=== PATIENT | female | born 1950 | race Caucasian/White ===

== ENCOUNTER → 2020-03-28 12:33 | Outpatient (CLI) | payer MEDICARE, OTHER, SELFPAY ==
--- NOTE | 2020-03-28 13:37 | DI.MRI.S_ITS ---
PROCEDURE: MR KNEE RT WO CON INDICATIONS: Other instability, knee TECHNIQUE: Noncontrast sagittal PD fast spin echo and T2 fast spin echo with fat saturation, sagittal 3-D FLASH with fat saturation; coronal T1 spin echo and PD fast spin echo with fat saturation, and axial PD fast spin echo with fat saturation through the knee. COMPARISON: Outside Film, CR, XR KNEE 3 VIEWS RIGHT, 02/28/2020, 12:32. FINDINGS: Image quality: Excellent. Menisci: There is linear oblique high T2 signal intensity traversing the medial meniscal body and posterior horn, demonstrating inferior articular surface extension, indicating oblique tearing. Linear oblique high T2 signal intensity traverses the lateral meniscal body, demonstrating inferior articular surface extension, indicating oblique tearing. Cruciate ligaments: The anterior and posterior cruciate ligaments appear intact. Medial structures: The medial collateral ligament appears intact. Visualized portions of the pes anserinus tendons appear normal. No abnormal bursal fluid. Lateral structures: The lateral collateral ligament demonstrates mild T2 signal elevation at its femoral origin. The long and short heads of the biceps femoris tendon appear intact. The popliteus tendon appears normal. Iliotibial band appears normal. Anterior structures: The quadriceps and patellar tendons appear intact. Patellar alignment is normal. No femoral trochlear dysplasia or ventral trochlear prominence. There is moderate edema within the superolateral aspect of the infrapatellar fat pad. There is a small amount of prepatellar fluid as well as moderate fat stranding Bones and cartilage: There is a nondisplaced fracture of the inferior pole of the patella, with moderate surrounding ill-defined STIR signal elevation, consistent with contusion. Mild tricompartmental periarticular osteophyte formation. Moderate articular cartilage loss diffusely overlies the weight-bearing aspects of the medial femoral condyle and medial tibial plateau. There is moderate articular cartilage loss overlying the lateral patellar facet inferiorly. Joint space: There is a small knee joint effusion and a trace Dixon's cyst. Normal appearing synovial plicae are incidentally noted. IMPRESSION: 1. Nondisplaced inferior patellar fracture with adjacent contusion, prepatellar soft tissue injury, and infrapatellar fat pad edema. There is associated articular cartilage injury overlying the inferolateral patella. 2. Tricompartmental osteoarthritis with associated articular cartilage loss. 3. Medial and lateral meniscal tearing. 4. Small knee joint effusion and trace Dixon's cyst. Dictated by: Jeanne Sen M.D. on 03/28/2020 at 14:54 Approved by: Jeanne Sen M.D. on 03/28/2020 at 14:59
== END ==
PROVIDERS: Referring Provider Physician Assistant Surgical; Visit Provider Physician Assistant Surgical
DX: M25.361 Other instability, right knee (principal); S82.014A Nondisplaced osteochondral fracture of right patella, initial encounter for closed fracture; M17.11 Unilateral primary osteoarthritis, right knee; S83.281A Other tear of lateral meniscus, current injury, right knee, initial encounter; S83.241A Other tear of medial meniscus, current injury, right knee, initial encounter; M25.461 Effusion, right knee
CPT/HCPCS: 73721

== ENCOUNTER → 2020-08-30 13:41 | Outpatient (CLI) | payer MEDICARE, OTHER, SELFPAY ==
--- NOTE | 2020-08-30 | DI.MG.S_ITS ---
BILATERAL DIGITAL SCREENING MAMMOGRAM 3D/2D WITH CAD: 08/30/2020 CLINICAL: Routine screening. Comparison is made to exams dated: 05/23/2019 mammogram, 08/30/2017 mammogram, and 05/26/2016 mammogram - [facility]. There are scattered fibroglandular elements in both breasts. Current study was also evaluated with a Computer Aided Detection (CAD) system. No significant masses, calcifications, or other findings are seen in either breast. There has been no significant interval change. IMPRESSION: NEGATIVE There is no mammographic evidence of malignancy. A 1 year screening mammogram is recommended. This exam was interpreted at Station ID: [id number]. NOTE: For mammograms, a report in lay terms will be sent to the patient. Approximately 15% of breast malignancies will not be visualized mammographically. In the management of a palpable breast mass, a negative mammogram must not discourage biopsy of a clinically suspicious lesion. Electronically Signed By: Darrell robbins/harrison:08/30/2020 16:06:08 letter sent: Normal Exam ACR BI-RADS Category 1: Negative [id number]
--- NOTE | 2020-08-30 | DI.ECHO.S_ITS ---
[facility] +---------+ : : [address] : [address] [address] : : : : [id number] : : : : Phone: [phone]---------+ Echocardiogram Report + + :Name: RON JORDAN Study Date: 08/30/2020 Height: 64 in : :[facility] Weight: 167 lb : : Gender: Female BSA: 1.8 m2 : :: 1950 Age: 70 yrs BP: 176/75 mmHg: :Reason For Study: MVP : : Performed By: Marcelo Loya : :Referring: KAYODE LLANOS : + + Interpretation Summary The ejection fraction is estimated to be 50-55%. There is prolapse of the anterior mitral valve leaflet. There is prolapse of the posterior mitral valve leaflet(s). There is mild to moderate mitral regurgitation. The mitral regurgitant jet is eccentrically directed. Compared to the prior echo report on 2017, there is no significant change. Procedure: A two-dimensional transthoracic echocardiogram with color flow and Doppler was performed. The study quality was technically adequate. Comparison is made with the echocardiogram of 03/16/17. The patient was in normal sinus rhythm during the exam. The patient had occasional PVCs during the exam. Left Ventricle: The left ventricle is normal in size. There is normal left ventricular wall thickness. The ejection fraction is estimated to be 50-55%. There are no focal wall motion abnormalities. Right Ventricle: The right ventricle is normal in size and function. Atria: The left atrium is severely dilated. The right atrium is mildly dilated. Mitral Valve: There is prolapse of the anterior mitral valve leaflet. There is prolapse of the posterior mitral valve leaflet(s). There is mild to moderate mitral regurgitation. The mitral regurgitant jet is eccentrically directed. Aortic Valve: The aortic valve is trileaflet. The aortic valve is slightly calcified. The aortic valve opens well. No aortic regurgitation is present. Tricuspid Valve: The tricuspid valve is normal in structure and function. There is trace tricuspid regurgitation. Pulmonary artery pressures cannot be estimated because of the lack of a measurable TR jet velocity. Pulmonic Valve: The pulmonic valve is not well seen, but is grossly normal. There is no pulmonic valvular regurgitation. Great Vessels: The aortic root is normal size. The dimensions of the ascending aorta are normal. The pulmonary artery is normal size. The IVC is of normal diameter and collapses greater than 50% with a sniff. This suggests a low right atrial pressure of 3 mm Hg. Pericardium/ Pleura There is no pericardial effusion. There is no pleural effusion. MMode/2D Measurements & Calculations LVIDd: 5.0 cm LVOT diam: 2.0 cm LVIDs: 4.0 cm Ao root diam: 2.7 cm FS: 21.5 % asc Aorta Diam: 3.1 cm EPSS: 0.52 cm Ao Arch Diam (Prox Trans): 2.3 cm IVSd: 1.0 cm LVPWd: 0.95 cm LV hernandez. diameter/BSA (cm/m^2): 2.8 LV sys. diameter/BSA (cm/m^2): 2.2 LA dimension: 3.0 cm RA long axis: 4.8 cm LA A2 area: 26.7 cm2 RA area: 19.4 cm2 LA A4 area: 25.2 cm2 RA vol: 66.2 ml LA length (vol): 6.4 cm RA : 36.5 ml/m2 LA vol: 89.7 ml IVC diam: 1.4 cm LA vol index: 49.5 ml/m2 RVD1 (basal): 3.8 cm RVD2 (mid): 4.0 cm TAPSE: 2.6 cm Doppler Measurements & Calculations Ao V2 max: 128.8 cm/sec LVOT Max Jf: 108.9 cm/sec Ao V2 mean: 102.1 cm/sec LV V1 max P.7 mmHg Ao max P.6 mmHg LV V1 VTI: 25.4 cm Ao mean P.4 mmHg BRITNI(I,D): 2.7 cm2 Ao V2 VTI: 31.1 cm BRITNI(V,D): 2.8 cm2 sev ratio: 0.82 BRITNI indexed to BSA (cm^2/m^2): 1.5 MV E max jf: 52.6 cm/sec PA V2 max: 80.8 cm/sec MV A max jf: 77.5 cm/sec PA V2 mean: 60.9 cm/sec MV E/A: 0.68 PA mean P.6 mmHg Med Peak E' Jf: 5.6 cm/sec PA pr(Accel): 58.4 mmHg E/E' med: 9.4 Lat Peak E' Jf: 5.8 cm/sec E/E' lat: 9.1 E/e' average: 9.3 MV dec time: 0.27 sec MR PISA: 3.4 cm2 SV(LVOT): 82.7 ml MR flow rate: 127.1 cm3/sec MR PISA radius: 0.74 cm Reading Physician:03:45 PM
== END ==
PROVIDERS: PCP Physician Assistant Medical; Referring Provider Physician Assistant Medical; Visit Provider Physician Assistant Medical
DX: I34.1 Nonrheumatic mitral (valve) prolapse (principal); I34.0 Nonrheumatic mitral (valve) insufficiency; Z12.31 Encounter for screening mammogram for malignant neoplasm of breast
CPT/HCPCS: 77063; 77067; 93306

== ENCOUNTER → 2021-05-19 09:38 | Outpatient (CLI) | payer MEDICARE, OTHER, SELFPAY ==
--- NOTE | 2021-05-19 | DI.MRI.S_ITS ---
PROCEDURE: MR SHOULDER LT WO CON INDICATIONS: Pain in left shoulder TECHNIQUE: Noncontrast oblique coronal T2 fast spin echo with fat saturation, oblique sagittal T1 spin echo and T2 fast spin echo with fat saturation, axial T1 spin echo and T2 fast spin echo with fat saturation through the shoulder. COMPARISON: None. FINDINGS: Rotator cuff: Supraspinatus tendinopathy and thickening. Low-grade bursal surface fraying. Infraspinatus tendinopathy also noted, with low-grade bursal surface fraying. Teres minor appears intact. Subscapularis tendon appears intact. Borderline supraspinatus muscle atrophy. There is mild fatty infiltration of the supraspinatus and infraspinatus muscles. There is diffuse edema present within the infraspinatus and supraspinatus muscle bellies Bones and bursae: No bone marrow contusions or fractures. Mild acromioclavicular joint degeneration. Acromion demonstrates conventional anatomy, without an os acromiale. Mild subacromial-subdeltoid bursitis. Capsule and soft tissues: Labrum: Incidentally noted sublabral foramen. Poorly defined fraying of the superior labrum. Ill-defined posterior labral tear with adjacent glenoid rim sclerosis and spurring. There is mild partial-thickness associated cartilage loss. . Glenohumeral ligaments: Inferior and superior glenohumeral ligaments are intact. Biceps tendon: Long head of the biceps tendon intact. Rotator interval: Near complete obliteration of the subcoracoid fat signal intensity. Coracohumeral ligament: Intact. IMPRESSION: Rotator cuff tendinopathy and low-grade bursal surface fraying as above. Diffuse muscle edema involving the supraspinatus and infraspinatus, suggestive of acute strain Mild subacromial-subdeltoid bursitis. Chronic appearing posterior labral tear with associated degenerative changes and mild partial thickness cartilage loss. Dictated by: Matteo Rajan M.D. on 05/19/2021 at 10:52 Approved by: Matteo Rajan M.D. on 05/19/2021 at 11:00
== END ==
PROVIDERS: PCP Physician Assistant Medical; Referring Provider Orthopaedic Surgery; Visit Provider Orthopaedic Surgery
DX: M25.512 Pain in left shoulder (principal); M19.012 Primary osteoarthritis, left shoulder; M75.52 Bursitis of left shoulder; S43.492A Other sprain of left shoulder joint, initial encounter
CPT/HCPCS: 73221

== ENCOUNTER → 2023-05-01 08:46 | Outpatient (CLI) | payer MEDICARE, OTHER, SELFPAY ==
--- NOTE | 2023-05-01 08:48 | DI.MRI.S_ITS ---
PROCEDURE: MR KNEE LT WO CON INDICATIONS: Pain in left knee TECHNIQUE: Noncontrast sagittal PD fast spin echo and T2 fast spin echo with fat saturation, sagittal 3-D FLASH with fat saturation; coronal T1 spin echo and PD fast spin echo with fat saturation, and axial PD fast spin echo with fat saturation through the knee. COMPARISON: [facility], MR, MR KNEE RT WO CON, 03/28/2020, 12:51. [facility], CR, XR KNEE ARTHRITIC SERIES LT, 04/14/2023, 9:19. FINDINGS: Image quality: Excellent. Anterior Cruciate Ligament: Intact. Posterior Cruciate Ligament: Intact. Medial Collateral Ligament: Intact. Lateral Collateral Ligament: Intact. Medial Meniscus: There is radial tear of the posterior horn of the medial meniscus without significant extrusion of the meniscal body. Lateral Meniscus: Horizontal oblique tearing is seen at the junction of the posterior horn and body of the lateral meniscus extending to the inner third of the tibial articular surface. There is superimposed free edge fibrillation or shallow radial tearing at the posterior horn and body. Medial and Lateral Tendons: The semimembranosus tendon insertions and meniscocapsular junction appear intact. Visualized portions of the pes anserinus tendons appear normal. No abnormal bursal fluid. The long and short heads of the biceps femoris tendon appear intact. The popliteus tendon appears intact. No signs of posterolateral corner injury. Iliotibial band appears normal. Anterior Structures: Borderline patella dank. The quadriceps and patellar tendons appear intact. No patellar subluxation. Mildly congenitally shallow trochlear groove without significant patellar subluxation. The tibial tubercle-trochlear groove distance is within normal limits. Mild edema is seen at the superolateral aspect of Hoffa's fat pad, which can be seen in the setting of lateral femoral condyle-patellar tendon friction syndrome Bones: No acute trabecular bone injury or fracture. Medial Femorotibial Cartilage: Moderate grade partial-thickness cartilage thinning and irregularity at the posterior to far posterior portion of the medial femoral condyle and medial tibial plateau. Lateral Femorotibial Cartilage: Grade 2 chondromalacia in the weight-bearing portion of the lateral compartment. Patellofemoral Cartilage: Focal moderate grade cartilage irregularity at the inferior portion of the median ridge and adjacent medial and lateral facets of the patella. Soft Tissues: Small joint effusion. Lobular joint fluid adjacent to the lateral femoral condyle measuring 26 x 6 x 18 mm may represent a parameniscal cyst versus ganglion cyst or loculated joint fluid. Trace medial popliteal cyst. The musculature surrounding the knee is normal in bulk. IMPRESSION: 1. Radial tear of the posterior horn of the medial meniscus measuring approximately 3 mm in width without significant meniscal extrusion. 2. Complex tearing of the lateral meniscus with a horizontal oblique component at the posterior horn and body extending to the inner third of the tibial articular surface as well as a shallow radial component at the meniscal body and posterior horn. 3. 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 Grade 2-3 chondromalacia is also seen at the inferior patella involving the median ridge and adjacent portions of the medial and lateral facets. There is mild grade 2 chondromalacia in the lateral compartment. 4. Mildly congenitally shallow trochlear groove. A small amount of edema is seen at the superolateral aspect of the infrapatellar fat pad that can be seen in the setting of lateral femoral condyle-patellar tendon friction syndrome. 5. Lobular fluid collection lateral to the lateral femoral condyle measuring up to 26 mm may represent a parameniscal cyst versus ganglion cyst or loculated joint fluid. 6. Small joint effusion. Approved by: Alex Riley M.D. on 05/03/2023 at 10:33
== END ==
PROVIDERS: PCP Physician Assistant Medical; Referring Provider Orthopaedic Surgery; Visit Provider Orthopaedic Surgery
DX: S83.242A Other tear of medial meniscus, current injury, left knee, initial encounter (principal); S83.272A Complex tear of lateral meniscus, current injury, left knee, initial encounter; M25.562 Pain in left knee; M94.262 Chondromalacia, left knee; M25.462 Effusion, left knee
CPT/HCPCS: 73721

== ENCOUNTER 2023-05-19 12:55 | Emergency (ER) | payer MEDICARE, OTHER, SELFPAY ==
[2023-05-19 13:00] VITALS: BP 159/84; PULSE 78; RESP 16; O2SAT 97; BMI 27.9
--- NOTE | 2023-05-19 13:09 | DI.RAD.S_ITS ---
PROCEDURE: XR FINGER RT MIN 2V INDICATIONS: fall/injury TECHNIQUE: AP hand, 2 views of the 3 finger(s) acquired. COMPARISON: None. FINDINGS: Bones: Partially seen fusion changes in the proximal carpal row and distal radius, with soft tissue anchors. Mild thumb base degenerative changes. No displaced fracture or dislocation is identified. Soft tissues: Between the 2nd and 3rd metacarpals, there are few radiodensities, location indeterminate. Punctate radiodensity also seen adjacent the 1st metacarpal base, possibly external. IMPRESSION: No acute radiographic abnormality. Postsurgical changes and fusion partially seen in the wrist. If there is high concern for occult injury, consider repeat radiography or cross-sectional imaging. Few radiodensities, possibly foreign bodies, location indeterminate, projecting between the 2nd and 3rd metacarpals. Punctate radiodensity also seen adjacent the 1st metacarpal base, possibly external. Dictated by: Herson Farah M.D. on 05/19/2023 at 13:34 Approved by: Herson Farah M.D. on 05/19/2023 at 13:36
--- NOTE | 2023-05-19 13:51 | ED.UPPEXIN ---
HPI - Extremity Injury (Upper) <Samantha Curran PA-C - Last Filed: 05/19/23 13:56> General Chief Complaint: Extremity Injury, Upper Stated Complaint: Right hand pain Time Seen by Provider: 05/19/23 13:23 Source: patient Mode of arrival: Ambulatory History of Present Illness HPI narrative: Patient is a 72-year-old female who fell while walking her dogs yesterday. She presents with right thumb pain. She is been applying ice and she takes [place] for chronic pain. She reports no new paresthesias or weakness in her thumb. Pain and swelling is worse in the 1st MCP joint. She has a history of right wrist fusion but is not having any pain in her wrist. Related Data Home Medications Medication Instructions Recorded Confirmed atorvastatin 10 mg tablet 10 mg PO DAILY 03/21/21 03/21/21 sertraline 50 mg tablet (Zoloft) 50 mg PO DAILY 03/21/21 03/21/21 Allergies Allergy/AdvReac Type Severity Reaction Status Date / Time No Known Drug Allergies Allergy Unverified 03/21/21 08:47 Review of Systems <Samantha Curran PA-C - Last Filed: 05/19/23 13:56> Review of Systems ROS Unobtainable: All systems reviewed & are unremarkable except as noted in HPI and below Patient History <Samantha Curran PA-C - Last Filed: 05/19/23 13:56> Social History Smoking Status: Never smoker Smoking Status: Never smoker Exam <Samantha Curran PA-C - Last Filed: 05/19/23 13:56> Narrative Exam Narrative: GENERAL: 72 year old patient appears stated age. Well-developed patient, in no distress. NEURO: AOx3. HEAD: Atraumatic. Normocephalic. EYES: Pupils equal round and reactive. Extraocular motions intact. No scleral icterus. No injection or drainage. ENT: Nose without bleeding or purulent drainage. Airway patent. RESPIRATORY: No distress EXTREMITIES: Edema and ecchymosis of the right 1st MCP joint. No snuffbox tenderness. Flexion, extension, adduction and abduction intact. SKIN: No rash or erythema of visible areas Initial Vital Signs Initial Vital Signs: Vital Signs Pulse Rate 78 05/19/23 13:00 Respiratory Rate 16 05/19/23 13:00 Blood Pressure 159/84 H 05/19/23 13:00 Pulse Oximetry 97 05/19/23 13:00 Oxygen Delivery Method Room Air 05/19/23 13:00 <Tao Chan MD - Last Filed: 05/28/23 08:43> Initial Vital Signs Initial Vital Signs: Vital Signs Pulse Rate 78 05/19/23 13:00 Respiratory Rate 16 05/19/23 13:00 Blood Pressure 159/84 H 05/19/23 13:00 Pulse Oximetry 97 05/19/23 13:00 Oxygen Delivery Method Room Air 05/19/23 13:00 Course <Samantha Curran PA-C - Last Filed: 05/19/23 13:56> Orders Ordered: ED Orders 05/19/23 13:09 XR finger RT min 2V Stat Vital Signs Vital signs: Vital Signs - 8 hr 05/19/23 13:00 Pulse Rate 78 Respiratory Rate 16 Blood Pressure 159/84 H Pulse Oximetry 97 Oxygen Delivery Method Room Air <Tao Chan MD - Last Filed: 05/28/23 08:43> Orders Ordered: ED Orders 05/19/23 13:09 XR finger RT min 2V Stat Vital Signs Vital signs: Vital Signs - 8 hr 05/19/23 13:00 Pulse Rate 78 Respiratory Rate 16 Blood Pressure 159/84 H Pulse Oximetry 97 Oxygen Delivery Method Room Air MDM - Extremity Injury (Upper) <Samantha Curran PA-C - Last Filed: 05/19/23 13:56> Imaging Data Extremity x-ray #1: Radiologist's Impression: PROCEDURE:? XR FINGER RT MIN 2V ? INDICATIONS:? fall/injury ? TECHNIQUE:? AP hand, 2 views of the 3 finger(s) acquired.? ? COMPARISON:? None. ? FINDINGS:? ? Bones:? Partially seen fusion changes in the proximal carpal row and distal radius, with soft tissue anchors.? Mild thumb base degenerative changes.? No displaced fracture or dislocation is identified. ? Soft tissues:? Between the 2nd and 3rd metacarpals, there are few radiodensities, location indeterminate.? Punctate radiodensity also seen adjacent the 1st metacarpal base, possibly external. ? IMPRESSION:? No acute radiographic abnormality.? Postsurgical changes and fusion partially seen in the wrist.? If there is high concern for occult injury, consider repeat radiography or cross-sectional imaging. ? Few radiodensities, possibly foreign bodies, location indeterminate, projecting between the 2nd and 3rd metacarpals.? Punctate radiodensity also seen adjacent the 1st metacarpal base, possibly external. ? Dictated by: Herson Farah M.D. on 05/19/2023 at 13:34 ? ? Approved by: Herson Farah M.D. on 05/19/2023 at 13:36 ? MDM Narrative Medical decision making narrative: Multiple etiologies for patient's symptoms considered including, but not limited to: Fracture, dislocation, sprain. X-rays without evidence of dislocation or fracture, incidental finding of radiodensity seen. Patient has history of wrist and flexor tendon surgery on the right hand, likely related to past surgery. Advised RICE, can wear splint for comfort if she desires. Follow up with PCP if not improved after 2 weeks of conservative therapy. Patient's symptoms improved over duration of stay with above-stated therapies. Findings and discharge diagnosis discussed with patient/family followed by verbalization of understanding Return precautions discussed with patient/family whom verbalize understanding of diagnosis and plan Discharge Plan Departure Patient Disposition: Home Clinical Impression: Sprain of hand, thumb, right Instructions: DI for Finger Sprain Activity Restrictions/Additional Instructions: *You have been diagnosed with sprain of the right thumb. There is no fracture on the x-ray. You have been diagnosed with a musculoskeletal injury. You are advised to use R: rest. take it easy and listen to your body! I: ice. apply ice for 20 minutes every 2 hours while awake. Do not put ice directly on the skin. C: compression. Gentle compression with tyree wrap or splint will decrease pain and swelling. E: elevation. Keep extremity elevated above the heart whenever possible. Use tylenol or ibuprofen for inflammation and pain. It is generally safe to take up to 3-4grams of tylenol in 24 hours, or 2400mg of ibuprofen in 24 hours. If you have questions about dosing or whether these medications are safe for you, please ask a healthcare provider. *What to do: *Please continue to take your regular medications as directed. [ ] New medication prescriptions sent to your pharmacy: [ ] [ ] New medication written as a paper prescription [x] No new medications given *Please follow up with your primary care provider in 2-3 days, call for an appointment. Let them know you were seen in the Emergency Department and that we ask that you be seen in follow up. We will electronically transmit a record of today's note if your PCP is in our system *If you do not have a primary care provider please contact the [facility] Resource line at [phone]. They will ask some questions about your medical history and help get you set up with a doctor in the community. *Return to Emergency Department if you should have any new, worsening or concerning symptoms, such as [fever greater than 101 F, shaking chills, worsening pain, persistent vomiting or other concerning symptoms]. Prescriptions: No Action sertraline [Zoloft] 50 mg tablet 50 mg PO DAILY atorvastatin 10 mg tablet 10 mg PO DAILY Referrals: Concetta Romero PA-C [Primary Care Provider] - Stand Alone Forms: Patient Portal/API ED Sign-out <Tao Chan MD - Last Filed: 05/28/23 08:43> [facility]: I was immediately available in the department for consultation. ?This documentation has been reviewed and I agree with assessment and plan. Supervised by Tao Chan MD
== END 2023-05-19 13:55 | disposition home or self-care (01) ==
PROVIDERS: Emergency Provider Physician Assistant; PCP Physician Assistant Medical
DX: S63.641A Sprain of metacarpophalangeal joint of right thumb, initial encounter (principal); W18.30XA Fall on same level, unspecified, initial encounter
CPT/HCPCS: 73140; 99283; 99284

== ENCOUNTER 2023-11-24 09:10 | Emergency (ER) | payer MEDICARE, OTHER, SELFPAY ==
[2023-11-24 09:12] VITALS: BP 179/82; PULSE 61; RESP 14; TEMP 36.5; O2SAT 98; BMI 27.9
--- NOTE | 2023-11-24 09:39 | ED_ITS ---
HPI - Extremity Problem General Chief complaint: Extremity Problem,Nontraumatic Stated complaint: can't put weight on R leg per pt Time Seen by Provider: 11/24/23 09:21 Source: patient Mode of arrival: Ambulatory History of Present Illness HPI Narrative: Patient here with . is driving. Complains 10 -14 days right leg pain, notably the right knee medially. Patient has history of left knee meniscus repair last year at [facility]. Patient has been doing well. About 10 days or 2 weeks ago she was doing gardening putting a lot of weight and stress on her right leg due to an incline. Right leg started hurting more after that. She did mow the lawn this past weekend which made the pain worse. Is generalized pain throughout the whole limb but notably the right knee. No history of blood clots in legs or lungs. Has chronic right hip pain which is not new. Denies any foot or ankle pain or right lower leg pain or injury. Pants removed shoes and socks removed Related Data Home Medications Medication Instructions Recorded Confirmed atorvastatin 10 mg tablet 10 mg PO DAILY 03/21/21 03/21/21 sertraline 50 mg tablet (Zoloft) 50 mg PO DAILY 03/21/21 03/21/21 Allergies Allergy/AdvReac Type Severity Reaction Status Date / Time No Known Drug Allergies Allergy Verified 11/24/23 09:18 Review of Systems Review of Systems Narrative: GENERAL: negative chills, fatigue, malaise, fever, sweats. HEENT: negative sinus pain, ear pain, sore throat RESPIRATORY: negative dyspnea, cough CARDIOVASCULAR: negative chest pain, palpitations GASTROINTESTINAL: negative nausea, vomiting, abdominal pain : negative dysuria, frequency, hematuria MUSCULOSKELETAL: Positive muscle or bony pain SKIN: negative rash, skin lesions NEUROLOGIC: negative weakness, numbness ROS Unobtainable: All systems reviewed & are unremarkable except as noted in HPI and below Patient History Social History Smoking Status: Never smoker Smoking Status: Never smoker alcohol intake frequency: holidays/special occasions only Substance Use Type: does not use Exam Narrative Exam Narrative: GENERAL: in no distress, not toxic not dyspneic HEAD: Normocephalic. EYES: Pupils equal round ENT: Mucous membranes moist. EXTREMITIES: No gross deformities. Examination right lower extremity, up and walking at bedside but has antalgic gait due to generalized right leg pain. Denies any back pain with this. Able to do side Vincent lean forward and back without any back pain. Able to actively and passively flex and extend at the hip knee and ankle. There is no pain or laxity of the right knee with anterior posterior medial and lateral stress of the right leg. Foot is warm soft and pink as well as the entire leg with strong pedal pulse and brisk cap refills and light touch intact to foot and toes and able to wiggle toes. Mild tenderness to the right hip which is not new according to patient. Able to fully extend the hip and able to lift leg off the bed/flex the hip without difficulty. Quadriceps and hamstrings are nontender. Calf muscle is nontender. Negative Homans test and negative cardenas, no palpable cords. NEURO: AOx4. SKIN: Warm and dry PSYCH: Not anxious, is cooperative Initial Vital Signs Initial Vital Signs: Vital Signs Temperature 97.7 F 11/24/23 09:12 Pulse Rate 61 11/24/23 09:12 Respiratory Rate 14 11/24/23 09:12 Blood Pressure 179/82 H 11/24/23 09:12 Pulse Oximetry 98 11/24/23 09:12 Oxygen Delivery Method Room Air 11/24/23 09:12 Course Orders Ordered: Discontinued Medications Ketorolac Tromethamine (Ketorolac 30 Mg/Ml Vial) 30 mg IM NOW ONE Stop: 11/24/23 09:39 Last Admin: 11/24/23 09:59 Dose: 30 mg Documented By: IGNACIO Ondansetron HCl (Ondansetron 4 Mg Odt) 4 mg SL NOW ONE Stop: 11/24/23 09:39 Last Admin: 11/24/23 09:59 Dose: 4 mg Documented By: IGNACIO Oxycodone/Acetaminophen (Oxycodone/Acetaminophen 5/325 Tablet) 1 tab PO NOW ONE Stop: 11/24/23 09:39 Last Admin: 11/24/23 09:59 Dose: 1 tab Documented By: IGNACIO Vital Signs Vital signs: Vital Signs - 8 hr 11/24/23 09:12 Temperature 97.7 F Pulse Rate 61 Respiratory Rate 14 Blood Pressure 179/82 H Pulse Oximetry 98 Oxygen Delivery Method Room Air MDM - Extremity (Nontraumatic) Imaging Data US - DVT: Radiologist's Impression: [address] [address] Ultrasound Report Signed Patient: Liz Garcia MR#: [id number] : 1950 Acct:[id number] Age/Sex: 73 / F Date of Service: 11/24/23 Loc: ED Accession Number: [id number] Procedure: US periph venous low extrem rt Ordering Provider: Tao Chan MD PROCEDURE: US PERIPH VENOUS LOW EXTREM RT INDICATIONS: Pain TECHNIQUE: Real-time imaging, as well as color and pulse Doppler interrogation, were performed of the lower extremity deep veins from the inguinal ligament to the popliteal fossa, with documentation of the visualized calf veins. COMPARISON: None. FINDINGS: The common femoral, femoral, popliteal, and the visualized calf veins are normally compressible, and free of intraluminal thrombus. Color and pulse Doppler demonstrate normal phasic intraluminal flow. There is normal augmentation response to distal compression maneuver. IMPRESSION: No findings of lower extremity deep venous thrombosis. Dictated by: Dave Dhillon M.D. on 11/24/2023 at 10:41 Approved by: Dave Dhillon M.D. on 11/24/2023 at 10:42 Extremity x-ray #1: Radiologist's Impression: [address] [address] XRay Report Signed Patient: Liz Garcia MR#: [id number] : 1950 Acct:[id number] Age/Sex: 73 / F Date of Service: 11/24/23 Loc: ED Accession Number: [id number] Procedure: XR knee RT 3V Ordering Provider: Tao Chan MD PROCEDURE: XR KNEE RT 3V INDICATIONS: Pain TECHNIQUE: 3 views of the knee were acquired. COMPARISON: None. FINDINGS: Bones: No fractures or dislocations. Mild degenerative changes with mild osteophytosis and joint space narrowing. No suspicious bony lesions. Soft tissues: Small joint effusion. No suspicious soft tissue calcifications. IMPRESSION: No acute osseous abnormality. If pain persists with conservative management, consider repeat x-ray in 10-14 days or cross-sectional imaging. Dictated by: Dave Dhillon M.D. on 11/24/2023 at 10:39 Approved by: Dave Dhillon M.D. on 11/24/2023 at 10:40 Extremity x-ray #2: Radiologist's Impression: [address] [address] XRay Report Signed Patient: Liz Garcia MR#: [id number] : 1950 Acct:[id number] Age/Sex: 73 / F Date of Service: 11/24/23 Loc: ED Accession Number: [id number] Procedure: XR hip w pel if done RT 2V Ordering Provider: Tao Chan MD PROCEDURE: XR HIP W PEL IF DONE RT 2V INDICATIONS: Pain TECHNIQUE: AP pelvis with lateral view(s) of the right hip(s). COMPARISON: None. FINDINGS: Bones: No fractures or dislocations. Oixt-oy-tchydhne degenerative changes of the bilateral hips with joint space narrowing and marginal spurring. Degenerative changes of the visualized lower lumbar spine and pubic symphysis. Pelvic ring appears intact. No suspicious bony lesions. Soft tissues: The visualized bowel gas pattern is normal. No suspicious soft tissue calcifications. IMPRESSION: No acute osseous abnormalities. 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 Dictated by: Dave Dhillon M.D. on 11/24/2023 at 10:40 Approved by: Dave Dhillon M.D. on 11/24/2023 at 10:41 [facility] Narrative Medical decision making narrative: Patient here with . is driving. Complains 10 -14 days right leg pain, notably the right knee medially. Patient has history of left knee meniscus repair last year at [facility]. Patient has been doing well. About 10 days or 2 weeks ago she was doing gardening putting a lot of weight and stress on her right leg due to an incline. Right leg started hurting more after that. She did mow the lawn this past weekend which made the pain worse. Is generalized pain throughout the whole limb but notably the right knee. No history of blood clots in legs or lungs. Has chronic right hip pain which is not new. Denies any foot or ankle pain or right lower leg pain or injury. Pants removed shoes and socks removed After history and exam x-ray right hip x-ray right knee ultrasound of the leg Toradol Percocet Judi [facility] Medical records reviewed: No recent visit for this complaint Differential considered: Includes but not limited to right knee strain DVT SVT muscular strain, degenerative knee disease No blood work indicated. Imaging studies independently reviewed: X-ray right hip and knee, ultrasound right leg no DVT, no acute finding Treatments: Toradol Percocet Zofran Re-evaluations: 11:49 a.m.. Reviewed results with patient and . Pain is much better. She does have pain medication and muscle relaxers at home. She does see Dr. Huggins, orthopedics in [place]. She will follow up with the office for re-evaluation. She does have a cane or walker at home to use. She does not want crutches. Return precautions reviewed. She desires discharge home Discussion: Appropriate for discharge home. Patient likely strained her leg muscles from gardening and mowing the lawn. No chest complaints. No blood work indicated. Return precautions reviewed. Pain is controlled. She does have orthopedic to follow up with she does have pain medications at home. Patient and desire discharge home Diagnosis: Right leg strain Discharge Plan Departure Patient Disposition: Home Clinical Impression: Muscle strain of right lower leg Qualifiers: Encounter type: initial encounter Qualified Code(s): S86.911A - Strain of unspecified muscle(s) and tendon(s) at lower leg level, right leg, initial encounter Instructions: DI for Muscle Strain Activity Restrictions/Additional Instructions: Please see your family doctor or your orthopedic provider, Dr. Huggins within a week for re-evaluation. No driving operating machinery today. Please use your home cane or walker when ambulating. You may also continue your home pain medication or muscle relaxer for discomfort. Return if worse if any questions or concerns. Your x-rays and ultrasound today are reassuring. No blood clot was seen in the leg. Prescriptions: No Action sertraline [Zoloft] 50 mg tablet 50 mg PO DAILY atorvastatin 10 mg tablet 10 mg PO DAILY Referrals: Norma Cadet PA-C [Primary Care Provider] - Stand Alone Forms: Patient Portal/API
[2023-11-24] MEDS: ONDANSETRON 4 MG ODT SL (09:59)
[2023-11-24] MEDS: OXYCODONE/ACETAMINOPHEN 5/325 TABLET 1 TAB PO (09:59)
[2023-11-24] MEDS: KETOROLAC 30 MG/ML VIAL IM (09:59)
[2023-11-24 11:55] VITALS: BP 136/63; PULSE 66; O2SAT 96
== END 2023-11-24 11:55 | disposition home or self-care (01) ==
PROVIDERS: Emergency Provider Emergency Medicine; PCP Physician Assistant
DX: S86.911A Strain of unspecified muscle(s) and tendon(s) at lower leg level, right leg, initial encounter (principal); Y93.H2 Activity, gardening and landscaping
CPT/HCPCS: 73502; 73562; 93971; 96372; 99284; J1885

== ENCOUNTER 2024-06-23 08:55 | Emergency (ER) | payer MEDICARE, OTHER, SELFPAY ==
[2024-06-23 09:09] VITALS: BP 129/67; PULSE 75; RESP 17; TEMP 37.1; O2SAT 100; BMI 27.4
--- NOTE | 2024-06-23 09:13 | ED.LOWEXIN ---
HPI - Extremity Injury (Lower) General Chief Complaint: Extremity Injury, Lower Stated Complaint: L knee swelling Time Seen by Provider: 06/23/24 09:08 Source: patient Mode of arrival: Wheelchair History of Present Illness HPI Narrative: Patient is a 73-year-old female presenting today with left knee pain. Reports that she got knocked over by a dog yesterday afternoon around 2:00 p.m.. She initially was able to go weight on it for about 30 minutes or so and then has really been unable to put weight on it is progressively gotten worse. It is swollen. She tried icing it last night. Denies any other injury no head injury or neck injury not on anticoagulation. Related Data Home Medications Medication Instructions Recorded Confirmed sertraline 50 mg tablet (Zoloft) 50 mg PO DAILY 03/21/21 06/23/24 amlodipine 10 mg tablet 10 mg PO DAILY 06/23/24 06/23/24 oxycodone 15 mg tablet 15 mg PO Q4-6H PRN pain 06/23/24 06/23/24 Previous Rx's Medication Instructions Recorded oxycodone 10 mg tablet 10 mg PO Q8H PRN pain #14 tabs 06/23/24 Allergies Allergy/AdvReac Type Severity Reaction Status Date / Time No Known Drug Allergies Allergy Verified 11/24/23 09:18 Patient History Social History Smoking Status: Never smoker Smoking Status: Never smoker alcohol intake frequency: holidays/special occasions only Substance Use Type: does not use Exam Initial Vital Signs Initial Vital Signs: Vital Signs Temperature 98.8 F 06/23/24 09:09 Pulse Rate 75 06/23/24 09:09 Respiratory Rate 17 06/23/24 09:09 Blood Pressure 129/67 06/23/24 09:09 Pulse Oximetry 100 06/23/24 09:09 Oxygen Delivery Method Room Air 06/23/24 09:09 GENERAL: Well-appearing, well-nourished and in no acute distress. CARDIOVASCULAR: peripheral pulses in tact, cap refill <2 sec RESPIRATORY: No respiratory distress, speaks in full sentences without difficulty EXTREMITIES: Normal range of motion, no clubbing or edema. Neurovascularly intact Left lower extremity left knee effusion knee is stable no erythema or contusion NEUROLOGICAL: Cranial nerves II through XII grossly intact. Normal gait and speech. SKIN: Warm, dry, no petechiae, no rashes or lesions. Course Orders Ordered: ED Orders 06/23/24 09:12 XR knee LT 3V Stat 06/23/24 11:05 CT LE LT wo con Stat Discontinued Medications Hydrocodone Bitart/Acetaminophen (Hydrocodone/Acet 5/325 Tablet) 1 tab PO NOW ONE Stop: 06/23/24 10:33 Last Admin: 06/23/24 10:37 Dose: 1 tab Documented By: AURORA Hydromorphone HCl (Hydromorphone 1 Mg Inj) 1 mg IM NOW ONE Stop: 06/23/24 11:06 Last Admin: 06/23/24 11:13 Dose: 1 mg Documented By: AURORA Vital Signs Vital signs: Vital Signs - 8 hr 06/23/24 09:09 06/23/24 12:41 Temperature 98.8 F Pulse Rate 75 68 Respiratory Rate 17 16 Blood Pressure 129/67 134/62 Pulse Oximetry 100 95 Oxygen Delivery Method Room Air Room Air MDM - Extremity Injury (Lower) Imaging Data Extremity x-ray #1: Radiologist's Impression: PROCEDURE: XR KNEE LT 3V INDICATIONS: fall TECHNIQUE: 3 views of the knee were acquired. COMPARISON: [facility], XR KNEE RT 3V, 11/24/2023, 9:46. FINDINGS: Bones: There is suggestion of nondisplaced fracture involving posterior aspect of lateral tibial plateau best seen on lateral view. No other fracture or dislocation. No patellar subluxation. No suspicious bony lesions. Soft tissues: Moderate to large suprapatellar joint effusion. No suspicious soft tissue calcifications. IMPRESSION: Suggestion of nondisplaced posterior lateral tibial plateau fracture with moderate to large hemarthrosis. Dictated by: Robinson Shearer M.D. on 06/23/2024 at 10:31 CT lower extremity: Radiologist's Impression: PROCEDURE: CT LE LT W CON INDICATIONS: Tibial plateau TECHNIQUE: Noncontrast 1-1.5 mm axial sections acquired from the mid-patella to the proximal tibia, with coronal and sagittal reformats. COMPARISON: [facility], XR KNEE LT 3V, 06/23/2024, 9:18. FINDINGS: Image quality: Excellent. Bones: As seen on earlier left knee radiograph, there is a comminuted fracture involving posterior aspect of lateral malleolus. There is minimal 1-2 mm depression at posterior lateral tibial plateau. No other fracture or dislocation is seen. No suspicious bony lesions. Mild tricompartmental osteoarthritis is seen. No significant patellar subluxation. Soft tissues: Large hyperdense joint effusion is seen suggestive of hemarthrosis. No calcified intra-articular loose bodies. No full-thickness quadriceps tendon or patellar tendon rupture. No gross ACL or PCL rupture. IMPRESSION: 1. Acute comminuted and minimally depressed fracture involving posterior aspect of lateral tibial plateau. No other fracture or dislocation. 2. Suggestion of large hemarthrosis. 3. Mild tricompartmental osteoarthritis. No significant patellar subluxation. 4. No full-thickness tendon or ligament rupture. No abnormal soft tissue calcifications or calcified intra-articular loose bodies. Dictated by: Robinson Shearer M.D. on 06/23/2024 at 12:05 Approved by: Robinson Shearer M.D. on 06/23/2024 at 12:07 [facility] Narrative Medical decision making narrative: Patient is a well appearing 73-year-old female presenting today with left knee pain. Injury happened yesterday initially was weight-bearing but really not weight-bearing since she does have significant effusion on exam. She is offered Tylenol or Motrin but declines at this time. X-ray is concerning for tibial plateau fracture CT confirms tibial plateau fracture with 1-[address] Matthews updated on patient's symptoms test results recommends knee immobilizer nonweightbearing and follow-up in clinic, Patient is on 15 mg of oxycodone daily for chronic pain. She is to spanish moss picker a new prescription in a couple of days not sure she has enough to get through the weekend. Pain management will also need medical records to give her more medication as needed to control her pain. Discharge Plan Departure Patient Disposition: Home Clinical Impression: Fracture of tibial plateau Instructions: DI for Tibial Plateau Fracture Activity Restrictions/Additional Instructions: *You have been diagnosed with tibial plateau fracture *What to do: At this time no weight-bearing this should heal on its own without surgery. Wear knee immobilizer at all times. Elevate and ice as often as possible Will take 8-12 weeks to heal *Continue to take medications as directed Continue pain medications as prescribed Oxycodone 10 mg every 8 hours for moderate to severe pain Please discuss with pain management about further pain control *Follow up with your primary care provider in 2-3 days or call [phone] Call [facility] *Return to ER if you should have increased numbness tingling weakness [or] any new, worsening or concerning symptoms Prescriptions: New oxycodone 10 mg tablet 10 mg PO Q8H PRN (Reason: pain) Qty: 14 0RF No Action sertraline [Zoloft] 50 mg tablet 50 mg PO DAILY oxycodone 15 mg tablet 15 mg PO Q4-6H PRN (Reason: pain) amlodipine 10 mg tablet 10 mg PO DAILY Referrals: [facility] [Provider Group] Norma Cadet PA-C [Primary Care Provider] - Stand Alone Forms: Patient Portal/API/Survey
[2024-06-23] MEDS: HYDROCODONE/ACET 5/325 TABLET 1 TAB PO (10:37)
--- NOTE | 2024-06-23 11:05 | DI.CT.S_ITS ---
PROCEDURE: CT LE LT W CON INDICATIONS: Tibial plateau TECHNIQUE: Noncontrast 1-1.5 mm axial sections acquired from the mid-patella to the proximal tibia, with coronal and sagittal reformats. COMPARISON: [facility], CR, XR KNEE LT 3V, 06/23/2024, 9:18. FINDINGS: Image quality: Excellent. Bones: As seen on earlier left knee radiograph, there is a comminuted fracture involving posterior aspect of lateral malleolus. There is minimal 1-2 mm depression at posterior lateral tibial plateau. No other fracture or dislocation is seen. No suspicious bony lesions. Mild tricompartmental osteoarthritis is seen. No significant patellar subluxation. Soft tissues: Large hyperdense joint effusion is seen suggestive of hemarthrosis. No calcified intra-articular loose bodies. No full-thickness quadriceps tendon or patellar tendon rupture. No gross ACL or PCL rupture. IMPRESSION: 1. Acute comminuted and minimally depressed fracture involving posterior aspect of lateral tibial plateau. No other fracture or dislocation. 2. Suggestion of large hemarthrosis. 3. Mild tricompartmental osteoarthritis. No significant patellar subluxation. 4. No full-thickness tendon or ligament rupture. No abnormal soft tissue calcifications or calcified intra-articular loose bodies. Dictated by: Robinson Shearer M.D. on 06/23/2024 at 12:05 Approved by: Robinson Shearer M.D. on 06/23/2024 at 12:07
[2024-06-23] MEDS: HYDROMORPHONE 1 MG INJ IM (11:13)
--- NOTE | 2024-06-23 12:39 | PC.NURSE ---
COPIER REPAIR TECHNICIAN Note: Discharge summary of visit faxed to Dr. Phyllis lA at [phone] per patient request. This is the patients pain management doctor.
[2024-06-23 12:41] VITALS: BP 134/62; PULSE 68; RESP 16; O2SAT 95
--- NOTE | 2024-06-23 12:51 | PC.NURSE ---
Left knee pain and swelling. States she was hit by a dog and fell to the ground. No open wounds noted.
== END 2024-06-23 12:51 | disposition home or self-care (01) ==
PROVIDERS: Emergency Provider Emergency Medicine; PCP Physician Assistant
DX: S82.142A Displaced bicondylar fracture of left tibia, initial encounter for closed fracture (principal); X58.XXXA Exposure to other specified factors, initial encounter
CPT/HCPCS: 73562; 73700; 96372; 99284; J1171